=== PATIENT | female | born 1995 | race Caucasian/White ===

== ENCOUNTER 2017-10-04 11:02 | Emergency (ER) | payer SELFPAY ==
[2017-10-04 11:20] VITALS: BP 110/80
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
== END 2017-10-04 11:30 | disposition home or self-care (01) ==
LOC: ED 11:02
DX: R10.9 Unspecified abdominal pain (principal); V49.9XXA Car occupant (driver) (passenger) injured in unspecified traffic accident, initial encounter; Z87.891 Personal history of nicotine dependence; Y92.9 Unspecified place or not applicable
CPT/HCPCS: 99281

== ENCOUNTER 2018-01-22 03:32 | Emergency (ER) | payer MEDICAID ==
[2018-01-22] MEDS ORDERED: NS 0.9% 1000 ML* 1,000 ML IV ONE (03:41)
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
[2018-01-22 03:58] LABS: ABS Basophils 0 10^3/ul (0-0.2); ABS Eosinophils 0 10^3/ul (0-0.6); ABS Lymphocytes 3.3 10^3/ul (1.0-4.8); ABS Nucleated RBC 0 10^3/ul; Eosinophil % 0.5 % (0-6); Hematocrit 42 % (35-47); Hemoglobin 14.2 g/dl (12.0-16.0); Mean Corpuscular HGB Conc 34 g/dl (31-36); Mean Corpuscular Hemoglobin 33 pg (27-31); Mean Corpuscular Volume 98 fL (80-97); Mean Platelet Volume 7.9 um3 (7.4-10.4); Nucleated Red Blood Cells % 0; Platelet Count 229 10^3/ul (150-450); Red Blood Count 4.28 10^6/ul (4.00-5.40); Red Cell Distribution Width 13 % (10.5-15); White Blood Count 8.3 10^3/ul (3.5-10.8)
[2018-01-22 04:15] LABS: EGFR Non-African American 105.6 (>60)
[2018-01-22 06:44] LABS: Urine Appearance Clear; Urine Blood 1+ (Negative); Urine Color Straw; Urine Ketones Negative (Negative); Urine Protein Negative (Negative); Urine Red Blood Cell Trace(0-2/hpf) (Absent); Urine Specific Gravity 1.008 (1.010-1.030); Urine Urobilinogen Negative (Negative); Urine White Blood Cell Trace(0-5/hpf) (Absent)
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
[2018-01-22 15:14] VITALS: BP 127/63
--- NOTE | 2018-01-22 15:50 | PN ---
ED Flex Patient Progress Note Date of Service: 01/21/18 Subjective: This is a 22 year-old F who is pending admission to [facility] / transfer to another psychiatric facility / discharge to home / or being observed secondary to polysubstance drug abuse. Pt. examined in F2. Baseline labs showed elevated lactic acid of 3.4. Normal WBC. U/A negative for infection. Pt. denies any recent illness. She does not she has been having intermittent diffuse abd. pain, but is currently not having any pain. Repeat lactic has been ordered. Objective: Vitals: Most recent vital signs documented below. General NAD, Alert and oriented x3. Abd: Abd. is soft and nontender throughout. Laboratory: Current laboratory results documented below. Assessment: Pending MHE and repeat lactic. Plan: Pending psychiatric or medical consultation to observe / transfer / admit / discharge will follow up daily . Vital Signs Temp Pulse Resp BP Pulse Ox 100.3 F 92 16 127/63 100 01/22/18 15:13 01/22/18 15:13 01/22/18 15:13 01/22/18 15:13 01/22/18 15:13 Lab Results - Entire Visit 01/22/18 01/22/18 01/22/18 06:30 06:30 03:46 WBC RBC Hgb Hct MCV MCH MCHC RDW Plt Count MPV Neut % (Auto) Lymph % (Auto) [place]ick[place] % (Auto) Eos % (Auto) Baso % (Auto) Absolute Neuts (auto) Absolute Lymphs (auto) Absolute Monos (auto) Absolute Eos (auto) Absolute Basos (auto) Absolute Nucleated RBC Nucleated RBC % Sodium Potassium Chloride Carbon Dioxide Anion Gap BUN Creatinine Est GFR ( Amer) Est GFR (Non-Af Amer) BUN/Creatinine Ratio Glucose Lactic Acid 3.4 H* Calcium Total Bilirubin AST ALT Alkaline Phosphatase Total Protein Albumin Globulin Albumin/Globulin Ratio Beta HCG, Quant Urine Color Straw Urine Appearance Clear Urine pH 8.0 Ur Specific [place] 1.008 L Urine Protein Negative Urine Ketones Negative Urine Blood 1+ A Urine Nitrate Negative Urine Bilirubin Negative Urine Urobilinogen Negative Ur Leukocyte Esterase Negative Urine WBC (Auto) Trace(0-5/hpf) Urine RBC (Auto) Trace(0-2/hpf) Ur Squamous Epith Cells Present A Urine Bacteria Absent Urine Glucose Negative Salicylates Urine Opiates Screen None detected Acetaminophen Ur Barbiturates Screen None detected Ur Phencyclidine Scrn None detected Ur Amphetamines Screen Presumptive positive A U Benzodiazepines Scrn None detected Urine Cocaine Screen None detected U Cannabinoids Screen Presumptive positive A Serum Alcohol 01/22/18 01/22/18 03:46 03:46 WBC 8.3 RBC 4.28 Hgb 14.2 Hct 42 MCV 98 H MCH 33 H MCHC 34 RDW 13 Plt Count 229 MPV 7.9 Neut % (Auto) 48.3 Lymph % (Auto) 39.0 [place]ickman % (Auto) 11.7 H Eos % (Auto) 0.5 Baso % (Auto) 0.5 Absolute Neuts (auto) 4.0 Absolute Lymphs (auto) 3.3 Absolute Monos (auto) 1.0 H Absolute Eos (auto) 0 Absolute Basos (auto) 0 Absolute Nucleated RBC 0 Nucleated RBC % 0 Sodium 141 Potassium 3.4 L Chloride 108 Carbon Dioxide 21 L Anion Gap 12 H BUN 8 Creatinine 0.70 Est GFR ( Amer) 127.8 Est GFR (Non-Af Amer) 105.6 BUN/Creatinine Ratio 11.4 Glucose 101 H Lactic Acid Calcium 9.9 Total Bilirubin 0.40 AST 35 ALT 16 Alkaline Phosphatase 58 Total Protein 7.7 Albumin 4.8 Globulin 2.9 Albumin/Globulin Ratio 1.7 Beta HCG, Quant < 0.60 Urine Color Urine Appearance Urine pH Ur Specific [place] Urine Protein Urine Ketones Urine Blood Urine Nitrate Urine Bilirubin Urine Urobilinogen Ur Leukocyte Esterase Urine WBC (Auto) Urine RBC (Auto) Ur Squamous Epith Cells Urine Bacteria Urine Glucose Salicylates < 2.50 Urine Opiates Screen Acetaminophen < 15 Ur Barbiturates Screen Ur Phencyclidine Scrn Ur Amphetamines Screen U Benzodiazepines Scrn Urine Cocaine Screen U Cannabinoids Screen Serum Alcohol 133 H
== END 2018-01-22 16:19 | disposition home or self-care (01) ==
LOC: ED 03:32
DX: T43.212A Poisoning by selective serotonin and norepinephrine reuptake inhibitors, intentional self-harm, initial encounter (principal); Y92.9 Unspecified place or not applicable; R00.0 Tachycardia, unspecified; Z87.891 Personal history of nicotine dependence
CPT/HCPCS: 36415; 80053; 80307; 80320; 80329; 81003; 81015; 83605; 84702; 85025; 87086; 93005; 96360; 96361; 99285; G0480

== ENCOUNTER 2018-06-10 07:42 | Emergency (ER) | payer BC, MEDICAID ==
[2018-06-10] MEDS ORDERED: NS 0.9% 1000 ML* 1,000 ML IV ONE (08:14)
--- NOTE | 2018-06-10 08:27 | ED ---
GI/ HPI - HPI Summary HPI Summary: A 22 y/o female accompanied by a friend presents to the ED c/o severe vaginal bleeding. As per triage, "Pt says she is "hemorrhaging" from vagina. Pt c/o numbness in legs and lightheadedness". According to the patient, she thinks that she is hemorrhaging. She stated that she woke up today with lots of blood on the bed and is still currently bleeding. She noted that she was on Depo, however, she has been bleeding quite a bit while on them. She stopped taking the Depo and it has been 4 months since last dose. Her prescription ended on , which she never picked up. She denies any cramping/abdominal pain. PMHx of two pregnancies. LKMP was September 23-2017. A1. Home Medications Medication Instructions Recorded Confirmed Type diphenhydrAMINE HCl [Benadryl 100 mg PO BEDTIME 06/10/18 06/10/18 History Allergy 25 MG CAP] - History of Current Complaint Chief Complaint: EDVaginalBleeding Time Seen by Provider: 06/10/18 08:01 Stated Complaint: HEAVY BLEEDING Hx Obtained From: Patient Hx Last Menstrual Period: 02/26/14 Onset/Duration: Started Hours Ago, Still Present Timing: Constant Current Severity: None Vaginal Bleeding Description: Bright Red Pain Intensity: 0 Location of Pain: None Associated Signs and Symptoms: Positive: Lightheadedness Aggravating Factor(s): Nothing Alleviating Factor(s): Nothing - Allergy/Home Medications Allergies/Adverse Reactions: Allergies Allergy/AdvReac Type Severity Reaction Status Date / Time No Known Allergies Allergy Verified 06/10/18 07:50 Home Medications: Home Medications diphenhydrAMINE HCl [Benadryl Allergy 25 MG CAP] 100 mg PO BEDTIME 06/10/18 [ History Confirmed 06/10/18] PMH/Surg Hx/FS Hx/Imm Hx Endocrine/Hematology History: Denies: Hx Diabetes Cardiovascular History: Denies: Hx Hypertension Sensory History: Denies: Hx Legally Blind, Hx Deafness Opthamlomology History: Denies: Hx Legally Blind Psychiatric History: Reports: Hx Anxiety, Hx Depression Denies: Hx Eating Disorder, Hx of Violent Episodes Against Others - Surgical History Surgery Procedure, Year, and Place: NONE Infectious Disease History: No Infectious Disease History: Denies: Traveled Outside the [place] in Last 30 Days - Family History Known Family History: Negative: Hypertension, Diabetes, Renal Disease - Social History Alcohol Use: None Alcohol Amount: last 03/2014 Hx Substance Use: Yes Substance Use Type: Reports: Marijuana, Other Substance Use Comment - Amount & Last Used: last used 03/2014; used LSD x1 2013 Hx Tobacco Use: Yes Smoking Status (MU): Former Smoker Type: Cigarettes, Cigars Length of Time of Smoking/Using Tobacco: 2 yrs Have You Smoked in the Last Year: Yes - quit when found out Review of Systems Negative: Fever Negative: Abdominal Pain Positive: discharge - VAGINAL BLEEDING. Neurological: Other - POSITIVE: LIGHTHEADEDNESS Positive: Numbness - IN LEGS All Other Systems Reviewed And Are Negative: Yes Physical Exam - Summary Physical Exam Summary: VITAL SIGNS: Reviewed. GENERAL: Patient is a well-developed and nourished female who is lying comfortable in the stretcher. Patient is not in any acute respiratory distress. HEAD AND FACE: No signs of trauma. No ecchymosis, hematomas or skull depressions. No sinus tenderness. EYES: PERRLA, EOMI x 2, No injected conjunctiva, no nystagmus. EARS: Hearing grossly intact. Ear canals and tympanic membranes are within normal limits. MOUTH: Oropharynx within normal limits. NECK: Supple, trachea is midline, no adenopathy, no JVD, no carotid bruit, no c- spine tenderness, neck with full ROM. CHEST: Symmetric, no tenderness at palpation LUNGS: Clear to auscultation bilaterally. No wheezing or crackles. CVS: Regular rate and rhythm, S1 and S2 present, no murmurs or gallops appreciated. ABDOMEN: Soft, non-tender. No signs of distention. No rebound no guarding, and no masses palpated. Bowel sounds are normal. EXTREMITIES: FROM in all major joints, no edema, no cyanosis or clubbing. NEURO: Alert and oriented x 3. No acute neurological deficits. Speech is normal and follows commands. SKIN: Dry and warm CERVICAL EXAM: Significant amount of red blood with some blood clots. Cervix is closed and there is no cervical motion tenderness. Triage Information Reviewed: Yes Vital Signs On Initial Exam: Initial Vitals Temp Pulse Resp BP Pulse Ox 98.4 F 102 16 115/60 99 06/10/18 07:47 06/10/18 07:47 06/10/18 07:47 06/10/18 07:47 06/10/18 07:47 Vital Signs Reviewed: Yes Diagnostics - Vital Signs Vital Signs Temp Pulse Resp BP Pulse Ox 06/10/18 07:47 98.4 F 102 16 115/60 99 - Laboratory Result Diagrams: 06/10/18 08:49 06/10/18 08:49 Lab Statement: Any lab studies that have been ordered have been reviewed, and results considered in the medical decision making process. - Ultrasound No standard instances Ultrasound Interpretation Completed By: Radiologist Summary of Ultrasound Findings: PELVIS ULTRASOUND: Normal and age-appropriate pelvic ultrasound including what appears to be a dominant 2.5 cm follicle in the right ovary and a small to moderate amount of adnexal fluid. Please correlate to the stage of the patient's menstruation. ED PHYSICIAN REVIEWED THIS RADIOLOGY REPORT. Re-Evaluation - Re-Evaluation Second Eval Re-Evaluation Time: 11:00 Change: Unchanged Comment: PATIENT DECLINES ORAL CONTRACEPTIVE PILLS. SHE WILL BE USING CONDOMS AT THIS TIME. DISCUSSED RESULTS AND PLAN WITH PATIENT. GIGU Course/Dx - Course Assessment/Plan: A 22 y/o female accompanied by a friend presents to the ED c/o severe vaginal bleeding. As per triage, "Pt says she is "hemorrhaging" from vagina. Pt c/o numbness in legs and lightheadedness". According to the patient, she thinks that she is hemorrhaging. She stated that she woke up today with lots of blood on the bed and is still currently bleeding. She noted that she was on Depo, however, she has been bleeding quite a bit while on them. She stopped taking the Depo and it has been 4 months since last dose. Her prescription ended on 05/20, which she never picked up. She denies any cramping/ abdominal pain. PMHx of two pregnancies. LKMP was September [id number]. A1. This patient is a 22-year-old female with the chief complaint of having heavy vaginal bleeding since this morning. Patient reports that she was due to have the Depo shot on May 20, however, she decided not to take the depression since the patient having intermittent heavy menstrual cycles. The patient doesn t know exactly what was her last menstrual cycle due to the Depo shot. The patient is A1. Blood work without any significant abnormality, beta hCG is negative for . Pelvic ultrasound impression: normal and age appropriate pelvic ultrasound including what appears to be a dominant 2.5 cm follicle in the right ovary and a small to moderate amount of adnexal fluid. Please correlate to the station of the patients menstruation. I discussed case with Dr. West from [facility] and he recommends the patient be discharged home and see if she wants to be placed on contraceptive pills. She will follow-up with him in the next couple days. Patient declines oral contraceptive pills. She will be using condoms at this time. I discussed all the findings and test results with the patient. Patient was instructed to return to the emergency room immediately if any of the symptoms return or worsens. Plan of care was discussed with the patient and she understands and agrees. All questions were answered at patient satisfaction. There were no further complaints or concerns. Lung exam before discharge: CTA B/L. Good air exchange. No wheezing or crackles heard. CVS: S1 and S2 present. No murmurs appreciated. Patient is alert and oriented x 3. Patient is hemodynamically stable. Patient will be discharged home with follow up [facility] in the next 3-5 days - Diagnoses Provider Diagnoses: Vaginal bleeding, abnormal, Dysmenorrhea - Physician Notifications Discussed Care Of Patient With: Ender Jules Time Discussed With Above Provider: 10:31 Instructed by Provider To: Other - RECOMMENDED PATIENT BE DISCHARGED HOME AND SEE IF SHE WANTS ORAL CONTRACEPTIVE PILLS. RECOMMENDS PATIENT FOLLOW UP WITH HIM IN THE NEXT COUPLE DAYS. Discharge - Sign-Out/Discharge Documenting (check all that apply): Patient Departure - DISCHARGE - Discharge Plan Condition: Stable Disposition: HOME Patient Education Materials: Dysmenorrhea (ED) Referrals: Kishan Castano MD [Primary Care Provider] - 3 Days Ender Jules MD [Medical Doctor] - 3 Days Additional Instructions: FOLLOW UP WITH [facility] IN THE NEXT 2-5 DAYS. RETURN TO ED FOR ANY NEW OR WORSENING SYMPTOMS. - Billing Disposition and Condition Condition: STABLE Disposition: Home - Attestation Statements Document Initiated by Scribe: Yes Documenting Scribe: Nestor Silverman Provider For Whom Scribe is Documenting (Include Credential): Woo Basilio MD Scribe Attestation: Nestor Rodriguez, scribed for Woo Basilio MD on 06/11/18 at 0813. Scribe Documentation Reviewed: Yes Provider Attestation: The documentation as recorded by the scribe, Nestor Silverman accurately reflects the service I personally performed and the decisions made by me, Woo Basilio MD Status of Scribe Document: Viewed Attestation Statement Scribe Attestation: I, Dr. Basilio personally performed the services described in this documentation as scribed in my presence and it is both accurate and complete. User Type: Provider with Scribe Provider Attestation: The documentation recorded by the scribe accurately reflects the service I personally performed and the decisions made by me.
[2018-06-10 08:56] LABS: ABS Basophils 0 10^3/ul (0-0.2); ABS Eosinophils 0.1 10^3/ul (0-0.6); ABS Lymphocytes 1.7 10^3/ul (1.0-4.8); ABS Monocytes 0.8 10^3/ul (0-0.8); ABS Neutrophils 8.2 10^3/ul (1.5-7.7); ABS Nucleated RBC 0 10^3/ul; Eosinophil % 0.9 %; Hematocrit 45 % (35-47); Hemoglobin 15.1 g/dl (12.0-16.0); Lymphocyte % 15.3 %; Mean Corpuscular HGB Conc 34 g/dl (31-36); Mean Corpuscular Hemoglobin 33 pg (27-31); Mean Corpuscular Volume 97 fL (80-97); Nucleated Red Blood Cells % 0; Platelet Count 249 10^3/ul (150-450); Red Blood Count 4.64 10^6/ul (4.00-5.40); Red Cell Distribution Width 13 % (10.5-15); White Blood Count 10.8 10^3/ul (3.5-10.8)
[2018-06-10 09:18] LABS: ALT 15 U/L (7-52); AST 23 U/L (13-39); Albumin 4.3 g/dL (3.2-5.2); Albumin/Globulin Ratio 1.4 (1-3); Alkaline Phosphatase 71 U/L (34-104); Anion Gap 9 mmol/L (2-11); BUN/Creatinine Ratio 10.6 (8-20); Blood Urea Nitrogen 7 mg/dL (6-24); C Reactive Protein < 1.00 mg/L (<8.01); CO2 Carbon Dioxide 22 mmol/L (22-32); Calcium 9.4 mg/dL (8.6-10.3); Chloride 106 mmol/L (101-111); EGFR Non-African American 113.1 (>60); Globulin 3.1 g/dL (2-4); Glucose 90 mg/dL (70-100); Potassium 3.8 mmol/L (3.5-5.0); Sodium 137 mmol/L (135-145); Total Protein 7.4 g/dL (6.4-8.9)
[2018-06-10 09:23] LABS: HCG Pregnancy < 0.60 mIU/mL
[2018-06-10 10:04] LABS: Urine Appearance Cloudy; Urine Bacteria Absent (Absent); Urine Bilirubin Negative (Negative); Urine Blood 3+ (Negative); Urine Color Yellow; Urine Glucose Negative (Negative); Urine Ketones Negative (Negative); Urine Nitrite Negative (Negative); Urine Protein 2+(100 mg/dL) (Negative); Urine Red Blood Cell 3+(>10/hpf) (Absent); Urine Specific Gravity 1.021 (1.010-1.030); Urine Urobilinogen Negative (Negative); Urine White Blood Cell 1+(6-10/hpf) (Absent)
[2018-06-10 11:19] VITALS: BP 113/63
== END 2018-06-10 11:19 | disposition home or self-care (01) ==
LOC: ED 07:42
DX: N94.6 Dysmenorrhea, unspecified (principal); N93.9 Abnormal uterine and vaginal bleeding, unspecified
CPT/HCPCS: 36415; 76856; 80053; 81003; 81015; 84702; 85025; 86140; 87086; 99283

== ENCOUNTER 2018-08-22 17:37 | Emergency (ER) | payer BC, MEDICAID ==
--- NOTE | 2018-08-22 17:49 | UC ---
Eye Complaint HPI - HPI Summary HPI Summary: 22 yo female presents with b/l eye redness, drainage, and crusting since this morning. She tells me that her 3 yo son had pink eye and pt thinks she may have caught it. She denies fever, chills, recent illness, sinus symptoms, or sore throat. She does not wear contacts or glasses. - History of Current Complaint Stated Complaint: EYE COMPLAINT Time Seen by Provider: 08/22/18 17:44 Hx Obtained From: Patient Hx Last Menstrual Period: 02/26/14 Onset/Duration: Sudden Onset Timing: Constant Severity Initially: Mild Severity Currently: Mild Pain Intensity: 4 Pain Scale Used: 0-10 Numeric - Allergies/Home Medications Allergies/Adverse Reactions: Allergies Allergy/AdvReac Type Severity Reaction Status Date / Time No Known Allergies Allergy Verified 08/22/18 17:53 PMH/Surg Hx/FS Hx/Imm Hx Psychological History: Anxiety, Depression, Bipolar Disorder - Surgical History Surgical History: None Surgery Procedure, Year, and Place: NONE - Family History Known Family History: Negative: Hypertension, Diabetes, Renal Disease - Social History Lives: With Family Alcohol Use: None Alcohol Amount: last 03/2014 Substance Use Type: Marijuana, Other Substance Use Comment - Amount & Last Used: last used 03/2014; used LSD x1 2013 Smoking Status (MU): Former Smoker Type: Cigarettes, Cigars Length of Time of Smoking/Using Tobacco: 2 yrs Have You Smoked in the Last Year: Yes - quit when found out When Did the Patient Quit Smoking/Using Tobacco: 03/2014 Household Exposure Type: Cigarettes - Immunization History Most Recent Influenza Vaccination: unknown Most Recent Tetanus Shot: 11/05/14 Most Recent Pneumonia Vaccination: none Vaccination Up to Date: Yes Review of Systems All Other Systems Reviewed And Are Negative: Yes Constitutional: Positive: Negative Skin: Positive: Negative Eyes: Positive: Drainage, Eye Redness ENT: Positive: Negative Respiratory: Positive: Negative Cardiovascular: Positive: Negative Gastrointestinal: Positive: Negative Neurovascular: Positive: Negative Neurological: Positive: Negative Psychological: Positive: Negative Physical Exam - Summary Physical Exam Summary: GENERAL: WDWN. No pain distress. SKIN: No rashes, sores, lesions, or open wounds. HEENT: Head: AT/NC Eyes: EOM intact. PERRLA. B/L EYES: Mild scleral injection. Conjunctiva with mild erythema and inflammation. Mild clear/yellow discharge. No FBs appreciated Nose: NTTP maxillary and frontal sinus. NECK: Supple. Nontender. No lymphadenopathy. CHEST: No accessory muscle use. Breathing comfortably and in no distress. CV: Pulses intact. Cap refill <2seconds NEURO: Alert. PSYCH: Age appropriate behavior. Triage Information Reviewed: Yes Vital Signs: Vital Signs: Temp Pulse Resp BP Pulse Ox 98.2 F 74 18 118/63 99 08/22/18 17:45 08/22/18 17:45 08/22/18 17:45 08/22/18 17:45 08/22/18 17:45 Vital Signs Reviewed: Yes Eye Complaint Course/Dx - Course Course Of Treatment: B/L conjunctivitis - Differential Dx/Diagnosis Provider Diagnosis: Conjunctivitis Discharge - Sign-Out/Discharge Documenting (check all that apply): Patient Departure All imaging exams completed and their final reports reviewed: No Studies - Discharge Plan Condition: Stable Disposition: HOME Prescriptions: Ofloxacin 0.3% (Eye Drop) [Ocuflox OPTH 0.3% (Eye Drop)] 1 drop BOTH EYES TID # 1 btl Patient Education Materials: Conjunctivitis (ED) Referrals: Kishan Castano MD [Primary Care Provider] - Additional Instructions: If you develop a fever, shortness of breath, chest pain, new or worsening symptoms - please call your PCP or go to the ED. - Billing Disposition and Condition Condition: STABLE Disposition: Home
[2018-08-22 17:53] VITALS: BP 118/63
== END 2018-08-22 17:55 | disposition home or self-care (01) ==
LOC: UCEAST 17:37
DX: H10.9 Unspecified conjunctivitis (principal); Z87.891 Personal history of nicotine dependence
CPT/HCPCS: 99202; G0463

== ENCOUNTER 2018-09-04 15:16 | Emergency (ER) | payer BC, MEDICAID ==
[2018-09-04 15:33] VITALS: BP 126/70
--- NOTE | 2018-09-04 15:37 | UC ---
Ear Complaint HPI - HPI Summary HPI Summary: 22 yo female presents with RIGHT ear mild pain and decreased hearing for the last 4-5 days. She tells me that she has been squirting hydrogen peroxide in her ear thinking it was ear wax, but has had no change in her symptoms. She tells me that about a week ago she had conjunctivitis. Denies fever, sinus symptoms, sore throat, cough. - History of Current Complaint Chief Complaint: UCEar Stated Complaint: R EAR COMPLAINT Time Seen by Provider: 09/04/18 15:37 Hx Obtained From: Patient Hx Last Menstrual Period: today Onset/Duration: Gradual Onset Severity Initially: Mild Severity Currently: Mild Pain Intensity: 1 Pain Scale Used: 0-10 Numeric - Allergies/Home Medications Allergies/Adverse Reactions: Allergies Allergy/AdvReac Type Severity Reaction Status Date / Time No Known Allergies Allergy Verified 09/04/18 15:33 PMH/Surg Hx/FS Hx/Imm Hx Psychological History: Depression - Surgical History Surgical History: None Surgery Procedure, Year, and Place: NONE - Family History Known Family History: Negative: Hypertension, Diabetes, Renal Disease - Social History Lives: With Family Alcohol Use: Occasionally Alcohol Amount: last 03/2014 Substance Use Type: Marijuana, Other Substance Use Comment - Amount & Last Used: last used 03/2014; used LSD x1 2013 Smoking Status (MU): Light Every Day Tobacco Smoker Type: Cigarettes, Cigars Length of Time of Smoking/Using Tobacco: 2 yrs Have You Smoked in the Last Year: Yes - quit when found out When Did the Patient Quit Smoking/Using Tobacco: 03/2014 Household Exposure Type: Cigarettes - Immunization History Most Recent Influenza Vaccination: unknown Most Recent Tetanus Shot: 11/05/14 Most Recent Pneumonia Vaccination: none Vaccination Up to Date: Yes Review of Systems All Other Systems Reviewed And Are Negative: Yes Constitutional: Positive: Negative Skin: Positive: Negative Eyes: Positive: Negative ENT: Positive: Ear Ache Respiratory: Positive: Negative Cardiovascular: Positive: Negative Gastrointestinal: Positive: Negative Neurovascular: Positive: Negative Psychological: Positive: Negative Physical Exam - Summary Physical Exam Summary: GENERAL: NAD. WDWN. No pain distress. SKIN: No rashes, sores, lesions, or open wounds. HEENT: Head: AT/NC Eyes: EOM intact. Conjunctiva clear without inflammation or discharge. Ears: Hearing grossly normal. RIGHT TM with mild erythema and bulging. No canal edema or drainage. Nose: Nasal mucosa pink and moist. NTTP maxillary and frontal sinus. Throat: Posterior oropharynx without exudates, erythema, or tonsillar enlargement. Uvula midline. NECK: Supple. Nontender. No lymphadenopathy. CHEST: CTAB. No r/r/w. No accessory muscle use. Breathing comfortably and in no distress. CV: RRR. Without m/r/g. Pulses intact. NEURO: Alert. PSYCH: Age appropriate behavior. Triage Information Reviewed: Yes Vital Signs: Initial Vital Signs Temp 98.2 F 09/04/18 15:27 Pulse 104 09/04/18 15:27 Resp 16 09/04/18 15:27 BP 126/70 09/04/18 15:27 Pulse Ox 100 09/04/18 15:27 Vital Signs Reviewed: Yes Ear Complaint Course/Dx - Course Course Of Treatment: Right otitis media - Differential Dx/Diagnosis Provider Diagnosis: Otitis media Discharge - Sign-Out/Discharge Documenting (check all that apply): Patient Departure All imaging exams completed and their final reports reviewed: No Studies - Discharge Plan Condition: Stable Disposition: HOME Prescriptions: Amoxicillin PO (*) [Amoxicillin 875 MG (*)] 875 mg PO BID #14 tab Patient Education Materials: Ear Infection (ED) Referrals: Kishan Castano MD [Primary Care Provider] - Scott Helm MD [Medical Doctor] - As Soon As Possible Additional Instructions: If you develop a fever, shortness of breath, chest pain, new or worsening symptoms - please call your PCP or go to the ED. Please schedule an appointment with Dermatology at the number below for further evaluation of your new skin spots - Billing Disposition and Condition Condition: STABLE Disposition: Home
== END 2018-09-04 15:50 | disposition home or self-care (01) ==
LOC: UCEAST 15:16
DX: H66.91 Otitis media, unspecified, right ear (principal); F32.9 Major depressive disorder, single episode, unspecified; F17.210 Nicotine dependence, cigarettes, uncomplicated
CPT/HCPCS: 99212; G0463

== ENCOUNTER 2019-01-13 17:03 | Emergency (ER) | payer BC, MEDICAID ==
[2019-01-13 17:11] VITALS: BP 113/61
--- NOTE | 2019-01-13 17:20 | UC ---
Dental HPI - HPI Summary HPI Summary: Pt presents with c/o right lower detnal pain and concern for a dental abscess X 1 year. Pt is requesting and antibiotic and "something for pain". - History of Current Complaint Chief Complaint: UCDentalProblem Stated Complaint: DENTAL Time Seen by Provider: 01/13/19 17:04 Hx Obtained From: Patient Hx Last Menstrual Period: CURRENT ?: No Onset/Duration: Gradual Onset, Lasting Weeks - 1 year, Still Present Severity: Severe Pain Intensity: 10 Aggravating Factor(s): Chewing Alleviating Factor(s): Nothing Related History: Swelling - Allergies/Home Medications Allergies/Adverse Reactions: Allergies Allergy/AdvReac Type Severity Reaction Status Date / Time No Known Allergies Allergy Verified 01/13/19 17:11 Home Medications: Home Medications Ibuprofen TAB* [Advil TAB*] 1,000 mg PO PRN 01/13/19 [History] PMH/Surg Hx/FS Hx/Imm Hx Previously Healthy: Yes - Surgical History Surgical History: Yes Surgery Procedure, Year, and Place: DENTAL EXTRACTION - Family History Known Family History: Negative: Hypertension, Diabetes, Renal Disease - Social History Occupation: Student Lives: With Family Alcohol Use: Occasionally Alcohol Amount: last 03/2014 Substance Use Type: None Substance Use Comment - Amount & Last Used: last used 03/2014; used LSD x1 2013 Smoking Status (MU): Current Every Day Smoker Type: Cigarettes Amount Used/How Often: 1/2 PPD Length of Time of Smoking/Using Tobacco: 2 yrs Have You Smoked in the Last Year: Yes - quit when found out When Did the Patient Quit Smoking/Using Tobacco: 03/2014 Household Exposure Type: Cigarettes - Immunization History Most Recent Influenza Vaccination: unknown Most Recent Tetanus Shot: 11/05/14 Most Recent Pneumonia Vaccination: none Vaccination Up to Date: Yes Review of Systems All Other Systems Reviewed And Are Negative: Yes Constitutional: Positive: Negative Skin: Positive: Negative Eyes: Positive: Negative ENT: Positive: Dental Pain Respiratory: Positive: Negative Cardiovascular: Positive: Negative Gastrointestinal: Positive: Negative Genitourinary: Positive: Negative Motor: Positive: Negative Neurovascular: Positive: Negative Musculoskeletal: Positive: Negative Neurological: Positive: Negative Psychological: Positive: Negative Is Patient Immunocompromised?: No Physical Exam Triage Information Reviewed: Yes Appearance: Well-Appearing Vital Signs: Initial Vital Signs Temp 98.4 F 01/13/19 17:06 Pulse 89 01/13/19 17:06 Resp 16 01/13/19 17:06 BP 113/61 01/13/19 17:06 Pulse Ox 100 01/13/19 17:06 Vital Signs Reviewed: Yes Eye Exam: Normal ENT Exam: Normal Dental: Positive: Abscess @ Neck exam: Normal Neck: Positive: Supple Respiratory Exam: Normal Respiratory: Positive: No respiratory distress Musculoskeletal Exam: Normal Neurological Exam: Normal Psychological Exam: Normal Skin Exam: Normal Dental Complaint Course/Dx - Differential Dx/Diagnosis Differential Diagnosis/Dx: Dental Abscess, Dental Caries Provider Diagnosis: Chronic dental pain Discharge - Sign-Out/Discharge Documenting (check all that apply): Patient Departure All imaging exams completed and their final reports reviewed: No Studies - Discharge Plan Condition: Stable Disposition: HOME Prescriptions: Amoxicillin PO (*) [Amoxicillin 875 MG (*)] 875 mg PO Q12H #20 tab Lidocaine 2% VISCOUS* [Xylocaine 2% Viscous*] 15 ml SWISH SPIT Q4H PRN #1 btl PRN Reason: Pain - Mild predniSONE TAB* [Deltasone 10 MG TAB*] 30 mg PO DAILY #12 tab Patient Education Materials: Dental Abscess (ED) Referrals: Kishan Castano MD [Primary Care Provider] - If Needed Additional Instructions: Please follow up with a dental care provider as soon as possible. - Billing Disposition and Condition Condition: STABLE Disposition: Home
== END 2019-01-13 17:28 | disposition home or self-care (01) ==
LOC: UCEAST 17:03
DX: G89.29 Other chronic pain (principal); K08.89 Other specified disorders of teeth and supporting structures; F17.210 Nicotine dependence, cigarettes, uncomplicated
CPT/HCPCS: 99212; G0463